=== PATIENT | female | born 1970 | race Caucasian/White ===

== ENCOUNTER 2024-09-24 19:08 | Emergency (ER) | payer OTHER ==
[2024-09-24 19:34] VITALS: BP 169/109; PULSE 88; RESP 15; TEMP 97.6; O2SAT 99
== END 2024-09-24 22:33 | disposition left against medical advice (07) ==
LOC: ER 19:10
DX: Z00.8 Encounter for other general examination (principal); Z88.8 Allergy status to other drugs, medicaments and biological substances; Z53.21 Procedure and treatment not carried out due to patient leaving prior to being seen by health care provider